=== PATIENT | female | born 1945 | race Two or more races ===

== ENCOUNTER 2024-06-07 13:29 | Outpatient (CLI) | payer OTHER | END 2024-06-07 13:41 | disposition home or self-care (01) | LOC: SONOGRAMA 13:29 | PROVIDERS: ATTEND Internal Medicine Hematology & Oncology | DX: E04.2 Nontoxic multinodular goiter (principal); D51.3 Other dietary vitamin B12 deficiency anemia; I10 Essential (primary) hypertension; E03.8 Other specified hypothyroidism ==